=== PATIENT | male | born 1985 | race Two or more races ===

== ENCOUNTER 2018-12-15 12:17 | Emergency (ER) | payer SELFPAY ==
[~2018-12-15] VITALS: Ht 180.3 cm; Wt 83.9 kg
[2018-12-15] MEDS ORDERED: hydrOXYzine 25 MG TAB or CAP PO ONE (14:45)
[2018-12-15] MEDS ORDERED: BACITRACIN TOP OINT 1 UD PKG TOP ONE (15:30)
[2018-12-15 15:57] VITALS: BP 126/80
== END 2018-12-15 15:58 | disposition home or self-care (01) ==
LOC: ER 12:22
DX: S00.03XA Contusion of scalp, initial encounter (principal); F12.10 Cannabis abuse, uncomplicated; Y08.89XA Assault by other specified means, initial encounter; Y93.89 Activity, other specified; Y99.8 Other external cause status; Y92.89 Other specified places as the place of occurrence of the external cause
CPT/HCPCS: 70450